=== PATIENT | male | born 1940 | race Caucasian/White ===

== ENCOUNTER 2021-03-10 08:24 | Outpatient (CLI) | payer MEDICARE | END 2021-03-10 08:25 | disposition home or self-care (01) | LOC: CSHMRI 08:24 | PROVIDERS: ATTEND Student in an Organized Health Care Education/Training Program | DX: H93.A9 Pulsatile tinnitus, unspecified ear (principal); H90.5 Unspecified sensorineural hearing loss; Z95.0 Presence of cardiac pacemaker | CPT/HCPCS: 70496; 70553; 71045; 82565 ==